=== PATIENT | female | born 1970 | race Caucasian/White ===

== ENCOUNTER 2025-02-18 16:11 | Inpatient (IN) | payer OTHER, SELFPAY ==
[2025-02-18 09:31] VITALS: BP 145/85
[2025-02-18 10:36] VITALS: BMI 29.8
[2025-02-18 10:52] LABS: % Basophils 0.5 % (0-2); % Eosinophils 0.8 % (0-6); % Immature Granulocytes 0.4 % (0-0.5); % Lymphocytes 11.7 % (20.5-51.1); % Monocytes 6.1 % (1.7-9.3); % Neutrophils 80.5 % (42.2-75.2); Absolute Eosinophils 0.1 10^3/uL (0-0.7); Absolute Lymphocytes 0.9 10^3/uL (1.2-3.4); Absolute Monocytes 0.5 10^3/uL (0.1-0.6); Absolute Neutrophils 6.1 10^3/uL (1.4-6.5); Hematocrit 41.3 % (37.0-47.0); Hemoglobin 14.6 g/dL (12.0-16.0); Mean Corp Hgb Conc. 35.4 g/dL (33.0-37.0); Mean Corpuscular Volume 87.7 fL (81.0-99.0); Mean Platelet Volume 10.1 fL (7.4-10.4); Nucleated Red Blood Cells % 0 %; Platelet Count 269 10^3/uL (130-400); Red Blood Cell Count 4.71 10^6/uL (4.20-5.40); Red Cell Dist. Width 13.5 % (11.5-14.5); White Blood Cell Count 7.6 10^3/uL (4.8-10.8)
[2025-02-18 11:02] LABS: ALT (SGPT) 13 U/L (0-35); AST (SGOT) 16 U/L (14-36); Albumin 4.8 g/dl (3.5-5.0); Alkaline Phosphatase 43 U/L (38-126); Blood Urea Nitrogen 17 mg/dl (7-17); Calcium 9.9 mg/dl (8.4-10.2); Carbon Dioxide 26 mmol/L (22-30); Chloride 109 mmol/L (98-107); Estimated Creatinine Clearance 78 ml/min; Glucose 90 mg/dl (70-99); Lipase 140 U/L (23-300); Potassium 4.3 mmol/L (3.5-5.1); Sodium 142 mmol/L (135-145); Total Bilirubin 1.1 mg/dl (0.2-1.3); Total Protein 7.7 g/dl (6.3-8.2); eGFR > 60.00
[2025-02-18 11:05] LABS: Urine Albumin Negative (Neg - Trace); Urine Bilirubin Negative (Negative); Urine Character Clear (Clear); Urine Color Yellow; Urine Glucose Negative (Negative); Urine Ketone 1+ (Negative); Urine Leukocyte Negative (Negative); Urine Nitrite Negative (Negative); Urine Occult Blood Negative (Negative); Urine Specific Gravity 1.015 (<1.030); Urine Urobilinogen Negative (Neg - 1+)
[2025-02-18] MEDS: TORADOL 15 MG IV ×2 (11:06→18:13)
--- NOTE | 2025-02-18 11:22 | ED.GENMED ---
History of Present Illness
General
Chief Complaint: Abdominal Pain
Time Seen by Provider: 02/18/25 09:57
History of Present Illness
History of Present Illness:
54-year-old female with history of thyroid disease presenting for abdominal pain. Patient reports prior to arrival she was at the gym and started to have central abdominal pain and cramping. She had to lay on the floor for about 30 minutes due to
her symptoms. Denies ever having this in the past. Reports history of appendectomy and total hysterectomy. Pain has been constant since onset, however cramping has slightly improved. Denies any vomiting or changes in her stool. Denies fever.
Denies chest pain or difficulty breathing. Denies any urinary complaints. Denies additional acute medical complaints
Past History
Past History
ED Past Medical History: Other (BRCA 1 Gene )
ED Past Surgical History: Gynecological and Other (Prophylactic mastectomy )
Social History
Tobacco: Non-smoker
Alcohol: None
Drug: None
Personal:
Living: with family
Employment: Employed
Family History
Family History: Other (breast ca )
Phy Exam
Physical Exam
Physical Exam:
General: Well-appearing, no clinical signs of dehydration, nontoxic and in no acute distress
HEENT: protecting airway
Neck: appears supple
CV: Normal heart rate, regular rhythm
Resp: No accessory muscle use, no increased work of breathing
Abd: Soft and non-distended, generalized tenderness to mid abdomen including periumbilical region and suprapubic region. No rebound or guarding
Extremities: No deformities, no swelling
Neuro: alert, no focal neurologic deficit
: deferred
Rectal: deferred
Psych: Normal affect
Skin: Intact
Course
Orders/Labs/Results
Orders:
Orders
02/18/25 10:16
CT Abd/pelvis W Iv Cont Urgent
Comment:
Reason For Exam: generalized pain midline
02/18/25 10:43
Complete Blood Count/With Diff Urgent
Comprehensive Metabolic Panel Urgent
Lipase Urgent
Urinalysis Reflex To Culture Urgent
Date Specimen was Collected: 02/18/25
Time Specimen was Collected: 10:42
02/18/25 10:45
Ketorolac [Toradol] 15 mg IV NOW STA
02/18/25 14:33
Gastrographin Enema [RF Colon-Single Contrast] Urgent
Comment:
Reason For Exam: sigmoid impaction
02/18/25 14:34
Lorazepam [Ativan] 1 mg IV NOW STA
Abnormal Lab Results
02/18/25
10:43
Absolute Lymphs (auto) 0.9 L 10^3/uL
(1.2-3.4)
Neutrophils % 80.5 H %
(42.2-75.2)
Lymphocytes % 11.7 L %
(20.5-51.1)
Chloride 109 H mmol/L
(98-107)
Urine Ketones 1+ A
(Negative)
02/18/25 10:43
02/18/25 10:43
Vital Signs
Initial and Last Documented VS:
Initial Vital Signs
Temp Pulse Resp BP Pulse Ox
97.5 F 74 18 145/85 100
02/18/25 09:31 02/18/25 09:31 02/18/25 09:31 02/18/25 09:31 02/18/25 09:31
Last Documented Vital Signs
Temp Pulse Resp BP Pulse Ox
97.5 F 72 16 150/72 98
02/18/25 09:31 02/18/25 14:23 02/18/25 14:23 02/18/25 14:23 02/18/25 14:23
MDM/Problems Addressed
MDM/Problems Addressed:
54-year-old female presenting to the emergency department for acute onset of abdominal pain. Vital signs on arrival are normal.
On exam patient is resting comfortably, no acute distress or discomfort. She is afebrile, nontoxic. Generalized tenderness to the mid abdomen. No additional associated GI symptoms. History of appendectomy, so without suspicion for acute
appendicitis. Plan for laboratory analysis, CT abdominal imaging. Toradol administered for pain.
12:50 - CT shows evidence of stool ball in the sigmoid colon, consistent with impaction/stercoral colitis, surrounding inflammatory changes. Given location, will consult with colorectal surgery. Patient's pain is currently controlled. Labs
unremarkable.
14:10 - Colorectal surgery to bedside, recommending a contrast enema study to try and clear out the obstruction due to risk of perforation. Advised admission. Patient in agreement with plan
*Critical Care Note
Total Time (30-74mins, 75-104mins- exclusive of procedures): Not Applicable
ED Attending Note
-
Portions of this chart may have been created with voice recognition software.� Occasional wrong word or��sound alike� substitutions may have occurred due to the inherent limitations of voice recognition software.
Discharge Plan
Departure
Prescriptions:
No Action
clindamycin HCl 150 MG capsule
300 mg PO TID Qty: 60 0RF
hydrocodone-acetaminophen 5 MG/500 MG tablet
1 tab PO Q6HPRN PRN (Reason: PAIN) Qty: 20 0RF
ibuprofen 600 MG tablet
600 mg PO Q6H Qty: 30 0RF
cephalexin 500 MG capsule
500 mg PO BID Qty: 20 0RF
prednisone 10 MG tablet
10 mg PO .TAPER Qty: 30 0RF
Rx Instructions:
Take 40mg daily x3days, 30mg daily x3days,
20mg daily x3days, 10mg daily x3days.
hydrocodone-acetaminophen 1 TABLET tablet
1 tab PO Q4HPRN PRN (Reason: pain) Qty: 10 0RF
diazepam 5 MG tablet
5 mg PO TIDPRN PRN (Reason: spasm) Qty: 9 0RF
Referrals:
Nelson Hayden MD [Family Provider, Family Practice]
Interventions
Interventions:
*Risk Screen - Suicide Last Done: 02/18/25 09:31
*General Assessment Last Done: 02/18/25 09:31
*Neglect/Abuse Screening Last Done: 02/18/25 10:39
*ED- Fall Risk Assessment Last Done: 02/18/25 10:50
*ED COVID-19 Vaccine History Last Done: 02/18/25 10:39
DX-Nakfds-Myovbdjbfy Assessment Last Done: 02/18/25 10:40
Discharge Date and Time
Print Language: FIJIAN
[2025-02-18 14:23] VITALS: BP 150/72
--- NOTE | 2025-02-18 14:59 | HPS.HSE ---
Family Physician
-
Family Physician: Nelson Hayden
Chief Complaint
-
Abdominal Pain
History of Present Illness
Patient is a 54 y/o female past medical history of hypothyroidism who presents with abdominal pain. Patient describes central abdominal pain and cramping that started this morning while at the gym. She reports slight nausea which she attributes to
Zepbound. She has a tednacny towards constipation which she states is chronic. She denies fevers, sweats or chills.
Medical History
Past Medical History
Past Medical History: Reports Other
Additional Past Medical History:
Hypothyroidism
Past Surgical History: Reports Other
Additional Past Surgical History:
Bilateral Mastectomy with Reconstruction
Hysterectomy
Appendectomy
Social History
Tobacco: Non-smoker
Alcohol: None
Personal:
Living: With Family
Family History
Family History: Not pertinent
Allergies / Home Medications
Allergies reflects when Allergies were last updated in [facility].
Home Medications with original date entered in [facility]
Allergy/Medication List:
Allergies
Allergy/AdvReac Type Severity Reaction Status Date / Time
Sulfa (Sulfonamide Allergy Rash Verified 02/18/25 09:31
Antibiotics)
Home Medications
diazepam 5 mg tablet (Valium) 5 mg PO DAILYPRN PRN anxiety 02/18/25
levothyroxine 50 mcg tablet (Synthroid) 50 mcg PO DAILY 02/18/25
ondansetron HCl 4 mg tablet 4 mg PO Q8HPRN PRN nausea 02/18/25
simethicone 80 mg chewable tablet 160 mg PO DAILYPRN PRN gas pains 02/18/25
tirzepatide (weight loss) 7.5 mg/0.5 mL subcutaneous pen injector (Zepbound) 7.5 mg SC TH 02/18/25
Review of Systems
-
History Source: Patient
A 12 point ROS was completed and negative except as noted: Yes
Constitutional: Denies Fever or Chills
Respiratory: Denies Cough or Trouble Breathing
Cardiac: Denies Chest Pain or Palpitations
Abdomen/GI: Reports See HPI, Abdominal Pain, Nausea and Constipated; Denies Vomiting or Diarrhea
Physical Exam
Vital Signs
Vital Signs
Temp Pulse Resp BP Pulse Ox
97.5 F 72 16 150/72 98
02/18/25 09:31 02/18/25 14:23 02/18/25 14:23 02/18/25 14:23 02/18/25 14:23
Physical Exam
General: Well Developed, Well Nourished and No Apparent Distress
HEENT: NormoCephalic, Anicteric, Moist mucous membranes and Atraumatic
Respiratory: Clear and Non Labored Respirations; No Wheezes, Rales or Rhonchi
Cardiac: S1/S2 and Regular Rhythm; No Murmur
GI: Soft, Non Distended, Tender (Mild in LLQ / Suprapubic region without rebound or guarding) and Other (Slightly hyperactive bowel sounds)
Rectal: Deferred by Provider
Musculoskeletal: No Clubbing, No Cyanosis and No Edema
Skin: Warm and Dry; No Rash
Neuro: Awake, Alert, Oriented and Nonfocal/grossly intact
Psych: Calm
Laboratory Results
-
02/18/25 10:43
02/18/25 10:43
Laboratory Results
Total Bilirubin 1.1 mg/dl (0.2-1.3) 02/18/25 10:43
AST 16 U/L (14-36) 02/18/25 10:43
ALT 13 U/L (0-35) 02/18/25 10:43
Alkaline Phosphatase 43 U/L (38-126) 02/18/25 10:43
Lipase 140 U/L (23-300) 02/18/25 10:43
Impression/Plan
-
Acute Abdominal Pain secondary to Fecal Impaction / Stercoral Colitis with possible perforation
-Appreciate Colorectal Surgery Consult
-Await Gastrografin enema result
-Continue NPO/IVFs
-Continue Unasyn
Hypothyroidism
-Continue levothyroxine
DVT proph: Lovenox
Code Status: Full Code
--- NOTE | 2025-02-18 15:00 | CON.CRS ---
Consultation
-
Date/Time Consultation Requested: 02/18/2025
Date/Time Consultation Performed: 02/18/2025
Reason for Consultation: Stercoral colitis
Medical History
-
Chief Complaint: Abdominal pain.
History of Present Illness:
54-year-old female who has been on Zepbound for a few months and does deal with a tendency towards constipation, who noticed significant central abdominal pain while at the gym today. This led her to the ER. In the ER her vitals are stable and she
is afebrile. CT scan of the abdomen and pelvis was performed. I reviewed the images and reports with both Dr. Kim and Dr. Conway of radiology. There is a sizable somewhat calcified 'stool ball 'in the sigmoid area with inflammation of the
associated sigmoid and collapsed distal rectosigmoid most consistent with stercoral colitis. Also of concern there is a sliver of air in the same area which may be intraluminal versus intramural versus extraluminal. I was consulted for a
colorectal opinion regarding her situation.
On discussion, the patient admits to chronic intermittent constipation. Again she has been on Zepbound for a few months. She has been passing flatus. She has been somewhat constipated in terms of BMs recently. Denies any blood in her stools.
Admits the pain is somewhat better with the Dilaudid shot she received. Has some nausea intermittently which she blames on the Zepbound. Denies vomiting. She admits to undergoing routine colonoscopies intermittently by a GI group [place].
Her last was only a couple years ago. Denies polyps. Also, she is a carrier for the BRCA1 gene.
Past Medical History
Past Medical History: Other (BRCA1 gene carrier)
Past Surgical History: Other (Prophylactic mastectomy.)
Social History
Tobacco: Non-Smoker
Alcohol: None
Personal:
Employment: Employed (Works in healthcare)
Family History
Family History: Other (Breast cancer)
Allergies / Home Medications
Allergy/AdvReac Type Severity Reaction Status Date / Time
Sulfa (Sulfonamide Allergy Rash Verified 02/18/25 09:31
Antibiotics)
Review of Systems
-
A 10 point review of systems was completed, and was negative except as per HPI.
Physical Exam
Vital Signs
Temp 97.5 F 02/18/25 09:31
Pulse 72 02/18/25 14:23
Resp Rate 16 02/18/25 14:23
Blood pressure 150/72 02/18/25 14:23
SaO2 98 02/18/25 14:23
02/17/25 02/18/25 02/19/25
06:59 06:59 06:59
Actual Weight 76.2 kg
Body Mass Index (BMI) 29.8
Lab Results / Allergies
02/18/25 10:43
02/18/25 10:43
WBC 7.6 10^3/uL (4.8-10.8) 02/18/25 10:43
Hgb 14.6 g/dL (12.0-16.0) 02/18/25 10:43
Hct 41.3 % (37.0-47.0) 02/18/25 10:43
Plt Count 269 10^3/uL (130-400) 02/18/25 10:43
Abs Immat Gran (auto) 0.0 10^3/uL (0-0.05) 02/18/25 10:43
Neutrophils % 80.5 % (42.2-75.2) H 02/18/25 10:43
Allergy/AdvReac Type Severity Reaction Status Date / Time
Sulfa (Sulfonamide Allergy Rash Verified 02/18/25 09:31
Antibiotics)
Physical Exam
General: Well Developed
HEENT: Normocephalic
Respiratory: Clear
Cardiac: S1/S2
GI: Non Distended and Tender (Mild left lower quadrant)
Skin: Warm and Dry
Neuro: AO x 3
Psych: Calm
Data Reviewed
-
CT Scan: Image Personally Visualized and interpreted, Report Reviewed by me, Discussed with Physician, Discussed with Patient and Discussed with Family
Labs: Labs Reviewed by me, Discussed with Physician, Discussed with Patient and Discussed with Family
Assessment / Plan
-
54-year-old female with chronic constipation and recent use of Zepbound with abdominal discomfort/pain and evidence on imaging for stercoral colitis due to a calcified stool ball in her sigmoid. There is also a sliver of air in the area of unclear
location: Intraluminal versus extraluminal versus intramural. This may be evidence for early perforation. I discussed situation in detail with the patient and her . I recommended Gastrografin enema for potentially both diagnostic and
therapeutic potential. The patient understands the risks with this procedure up to including perforation. I did tell her that she perforated from the Gastrografin enema or did not improve, she may need surgery with potential for a stoma. I will
ask the wound nurse to marker for potential stoma just in case. All plans were answered.
--- NOTE | 2025-02-18 15:20 | WOUNDNOTE ---
[facility] RN note: Dr. Luque requested L side stoma marking. Patient seen in radiology and was able to stoma sourav patient in lying and sitting positions. Stoma marked LUQ and LLQ over the rectus muscle avoiding skin creases. LUQ stoma sourav 4.4cm to L of
midline and 6cm above the umbilical line. LLQ stoma sourav 2.8cm to L of midline and 5.2cm distal to umbilical line. Patient instructed surgeon makes the final decision with stoma placement. Pelzer texted Dr. Luque re: stoma marked LLQ and LUQ, both
upper and lower quadrants have pouch leakage potential d/t body habitus, upper may be better unless surgeon thinks it's too close to rib cage, cannot go lower in LUQ d/t deep skin crease.
--- NOTE | 2025-02-18 15:45 | W.PN.UPDATE ---
Update Note
Progress Note Update
This is an addendum to H&P written by Julia Jeffers on 02/18/2025.� Patient seen and examined independently with PA.
54-year-old female past medical history of chronic intermittent constipation, hypothyroidism�presenting with central lower abdominal pain.
Labs unremarkable.
CT abdomen pelvis shows focal stool ball within the sigmoid colon with adjacent inflammatory change likely focal fecal impaction/stercoral colitis.� Small curvilinear focus of air posterior medial to the stool ball likely intraluminal which may
represent focus of pneumatosis intestinalis or localized extraluminal air.� Bowel wall thickening inflammatory change adjacent to the rectum and distal sigmoid colon consistent with colitis.
Colorectal recommended Gastrografin enema. NPO, IV fluids,�unasyn. Will need to start bowel regimen as recommended by colorectal.�
--- NOTE | 2025-02-18 16:33 | W.PN.UPDATE ---
Update Note
Progress Note Update
Gastrografin enema results noted. I did discuss and reviewed the images with Dr. Rafal Medeiros of radiology. There is no extravasation of contrast to indicate leak. However there is an obstructing filling defect in the proximal sigmoid consistent
with a stool ball. I discussed the situation with the patient and offered her 2 options. One option would be preemptive sigmoidectomy with likely colostomy. The other is oral laxatives overnight to see if this moves the stool ball and clears her
system out. She understands that the laxatives may exacerbate his situation and lead to colon perforation. On the other hand it may clear her out and allow her to avoid surgery. She she opts for the laxatives overnight. She will be on clears. I
will also tentatively add her to the OR schedule for tomorrow just in case.
[2025-02-18 17:02] LABS: TSH Reflex To Free T4 0.77 uIU/ml (0.47-4.68)
[2025-02-18 17:05] VITALS: BP 156/81
--- NOTE | 2025-02-18 17:09 | PTCARENOTE ---
Pt arrived to 2S via stretcher, ambulated to bed independently, gait steady. CLD and NPO past midnight reviewed with pt, pt verbalized understanding. Pt denies pain/ nausea at this time. Stoma markings noted, plan of care reviewed with pt and
spouse. Awaiting bowel prep from pharmacy to initiate. Bed locked and in the lowest position, safety maintained. Call scruggs in reach, spouse at bedside.
[2025-02-18 17:16] VITALS: BMI 29.5
--- NOTE | 2025-02-18 17:57 | PTCARENOTE ---
RN communicated with physicians group, pt does not require telemetry at this time. Care remains ongoing.
[2025-02-18] MEDS: LOVENOX 40 MG SC (18:03)
[2025-02-18] MEDS: NULYTELY SOLUTION 4 LITERS PO (18:04)
[2025-02-18] MEDS: UNASYN IV ×2 (18:42→23:14)
[2025-02-18 19:00] VITALS: BP 135/86
[2025-02-18] MEDS: DILAUDID 0.25 MG IV (21:14)
[2025-02-18] MEDS: ZOFRAN 4 MG IV (21:17)
[2025-02-18 23:00] VITALS: BP 147/78
--- NOTE | 2025-02-18 23:15 | PTCARENOTE ---
Addendum entered by Parvez Cerna RN 02/19/25 05:17:
Patient admits to passing gas. Pain 5-6 at rest but goes to 8-9 intermittently.
Original Note:
Patient s/p bowel prep for fecal impaction / stercoral colitis with increasing abdominal cramping / pain and nausea. Patient not due for PRN medication at this time, [facility] notified and x1 dose of 0.5mg IV dilaudid ordered and 5mg IV compazine - see
MAR for administration. At pain reassessment, patient unable to verbalize pain scale but states pain is 'tolerable' and 'not like before'. No BM or gas. Resting in bed at this time. VSS, call scruggs within reach, care ongoing.
[2025-02-18] MEDS: DILAUDID 0.5 MG IV (23:23)
[2025-02-18] MEDS: COMPAZINE 5 MG IV (23:24)
[2025-02-19] VITALS (14 sets, daily range): BP systolic 0–138; BP diastolic 52–71
[2025-02-19] MEDS: ZOFRAN 4 MG IV ×2 (05:09→16:42)
[2025-02-19] MEDS: DILAUDID 0.25 MG IV ×2 (05:09→10:00)
[2025-02-19] MEDS: UNASYN IV ×4 (05:10→23:43)
[2025-02-19] MEDS: SYNTHROID PO (06:27)
[2025-02-19 07:30] LABS: Hematocrit 38.8 % (37.0-47.0); Hemoglobin 14.1 g/dL (12.0-16.0); Mean Corp Hgb Conc. 36.3 g/dL (33.0-37.0); Mean Corpuscular Hgb 31.5 pg (27.0-31.0); Mean Corpuscular Volume 86.6 fL (81.0-99.0); Mean Platelet Volume 9.9 fL (7.4-10.4); Platelet Count 238 10^3/uL (130-400); Red Blood Cell Count 4.48 10^6/uL (4.20-5.40); Red Cell Dist. Width 13.5 % (11.5-14.5); White Blood Cell Count 15.4 10^3/uL (4.8-10.8)
[2025-02-19] MEDS: TORADOL 15 MG IV ×3 (07:44→23:42)
--- NOTE | 2025-02-19 07:51 | WOUNDNOTE ---
[facility] RN note: Notified Carlie Granados, colorectal PA that patient was stoma marked on L side yesterday afternoon per Dr. Luque's request. Asked if R side was needed too. Carlie responded she did not realize this and the R side was not necessary.
--- NOTE | 2025-02-19 07:54 | W.PN.HOSP.TC ---
Today's Communication/Plan
-
- surgery today
- unasyn
- ivf
Assessment / Plan
Assessment / Plan
Assessment:
54yo F pmh hypothyroidism, anxiety presented to [facility] ED 02/18 for abdominal pain. Pt on zepbound, has a hx of constipation. CT abdo/pelvis positive for sizable somewhat calcified 'stool ball' in sigmoid colon c/w stercoral colitis. Dr. Luque d/w pt
options of preemptive sigmoidectomy w colostomy and laxatives, which may exacerbate the situation and perforate the colon. Pt opted for laxatives
Plan:
Stercoral colitis
- abd/pelvis CT: Focal stool ball within the sigmoid colon, with adjacent inflammatory change
- barium enema: Large obstructing filling defect, distal portion of which is outlined by contrast seen in the sigmoid colon, without passage of water-soluble contrast seen into the more proximal colon and without findings to confirm
extravasation/leak of contrast, including on delayed imaging. Correlation with CT earlier in the same day, 'filling defect' most likely represents a large ball of stool.
- NPO
- IVF
- unasyn
- colorectal surgery input appreciated
Hypothyroidism
- cont levothyroxine
Anxiety
- cont diazepam
Overweight due to excess calories
- hold zepbound
Diet: NPO
DVT ppx: lovenox
Code status: FULL CODE
Anticipated Discharge: > 48 hours
Subjective/Interval History
-
Date of Service: February 19, 2025
Pt is a 54yo F pmh hypothyroidism, anxiety presented to [facility] ED 02/18 for abdominal pain. Pt on zepbound, has a hx of constipation. CT abdo/pelvis positive for sizable somewhat calcified 'stool ball' in sigmoid colon c/w stercoral colitis. Dr. Luque
d/w pt options of preemptive sigmoidectomy w colostomy and laxatives, which may exacerbate the situation and perforate the colon. Pt opted for laxatives and is added to OR schedule for today.
Objective Data
-
Labs:
Laboratory Results
02/19/25 02/19/25
07:19 07:42
WBC 15.4 H
Hgb 14.1
Hct 38.8
Plt Count 238
PT Pending
INR Pending
APTT Pending
Sodium Pending
Potassium Pending
Chloride Pending
Carbon Dioxide Pending
BUN Pending
Creatinine Pending
Glucose Pending
Calcium Pending
Vital Signs:
Vital Signs
Temp Pulse Resp BP Pulse Ox
98.1 F 81 18 147/78 97
02/18/25 23:00 02/18/25 23:00 02/18/25 23:00 02/18/25 23:00 02/19/25 00:35
I&O
02/18/25 02/19/25 02/20/25
06:59 06:59 06:59
Intake Total 1080 / 1080
Balance 1080 / 1080
Review of Systems
-
History Source: Patient
Constitutional: Reports No Symptoms
Respiratory: Reports No Symptoms
Cardiac: Reports No Symptoms
Abdomen/GI: Reports Abdominal Pain and Constipated
Genitourinary: Reports No Symptoms
Musculoskeletal: Reports No Symptoms
Neuro: Reports No Symptoms
Physical Exam
-
General: Well Developed and Well Nourished
HEENT: Normocephalic and Atraumatic
Respiratory: Clear to Auscultation and Non Labored Respirations
Cardiac: Regular Rhythm and S1/S2
GI: Soft, Tender (RLQ), Distended and Other (hypoactive BS)
Musculoskeletal: No Clubbing, No Cyanosis and No Edema
Skin: Warm and Dry
Neuro: Awake, Alert and Oriented
Psych: Calm
[2025-02-19 08:17] LABS: Blood Urea Nitrogen 14 mg/dl (7-17); Calcium 9.3 mg/dl (8.4-10.2); Carbon Dioxide 21 mmol/L (22-30); Chloride 111 mmol/L (98-107); Estimated Creatinine Clearance 77 ml/min; Glucose 110 mg/dl (70-99); Potassium 4.1 mmol/L (3.5-5.1); Sodium 139 mmol/L (135-145); eGFR > 60.00
--- NOTE | 2025-02-19 08:30 | W.PN.CRS1 ---
Today's Communication / Plan
-
OR today
Assessment/Plan
-
Assessment: 54-year-old female with chronic constipation and recent use of Zepbound with abdominal discomfort/pain and evidence on imaging for stercoral colitis due to a calcified stool ball in her sigmoid
Plan:
-OR today for a colectomy with a colostomy creation
-NPO
-IVFS @100ml/hr
-Pre-op labs ordered
-Wound marking for colostomy
-Anticipate OR around 13:30 today
-Continue antibiotics
Subjective Data
Subjective Data
Date of Service: February 19, 2025
Patient states she had a very rough night. She has some flatus but no bowel movements. She is requesting surgery.
Objective Data
-
Vital Signs
Temp Pulse Resp BP Pulse Ox
99.7 F 94 16 124/70 98
02/19/25 07:06 02/19/25 07:06 02/19/25 07:06 02/19/25 07:06 02/19/25 07:06
Intake & Output
02/18/25 02/19/25 02/20/25
06:59 06:59 06:59
Intake Total 1080 / 1080
Balance 1080 / 1080
Intake:
Oral fluids 720 / 720
IV piggybacks 360 / 360
Other:
Number of approximated MODERATE 1
amounts of urine
Lab Results
02/19/25 07:19
02/19/25 07:19
Physical Exam
-
General: No Acute Distress and AOx3
Abdomen: Soft, Non Distended and Tender (LLQ)
Skin: Warm and Dry
[2025-02-19 08:38] LABS: INR 1.02; PT 13.7 Sec (11.4-14.6)
[2025-02-19 08:39] LABS: APTT 34.9 Sec (23.4-35.0)
[2025-02-19] MEDS: NORMOSOL-R/PLASMALYTE-A 1000 IV ×2 (10:00→18:38)
--- NOTE | 2025-02-19 10:40 | WOUNDNOTE ---
WO RN NOTE: Met with patient briefly to check stoma siting. Patient unable to move much due to pain and abdominal distension. Left sided stoma markings are clear and intact. Patient and spouse denied specific questions about ostomies at this time.
Surgery planned for this afternoon. Will follow up with patient after surgery if ostomy is created.
[2025-02-19] MEDS: DILAUDID 0.5 MG IV (12:40)
--- NOTE | 2025-02-19 13:48 | W.PN.UPDATE ---
Update Note
Progress Note Update
No bowel function due to LBO from stercoral colitis/stool ball. Recommended Gauri's resection. Risks and benefits covered. Risks covered include but not limited to bleeding, infection, ureteral injury, rectal stump leak, anastomotic issue (if
created), bowel or solid organ injury, hernia, and anesthetic risks. She agrees to proceed.
--- NOTE | 2025-02-19 15:46 | CM ---
Patient seen at bedside with physicians. Patient and mother, daughter's present. Patient stated that she lives in a 2 story home with no DME at this time. Patient PCP is Dr. Hayden and she uses the [facility] in [place] and patient is pending
surgery today. CM will continue to follow for discharge planning needs.
Plan; surgery pending outcomes/work up for discharge needs.
--- NOTE | 2025-02-19 16:06 | W.IMMPOSTOP ---
Addendum entered and electronically signed by Shahram Luque MD 02/19/25 17:39:
Left VM on patient's 's phone updating him after the case.
Original Note:
Surgical Immed Post Op Note
-
Primary Surgeon: Mansi Luque MD
Assisting Surgeon: RAGHAV Olson
Pre-op Diagnosis: stercoral colitis of sigmoid with fecal impaction
Post-op Diagnosis: same
Procedure Performed: sigmoidectomy
Anesthesia Type: general plus local
Specimen / Cultures: 1) pelvic fluid 2) proximal sigmoid
Estimated Blood Loss: 50 cc
Complications: no immediate
Operative Findings: 1) mild distension of colon and small bowel 2) firm stool ball in proximal sigmoid with associated short segment of inflamed sigmoid with localized exudate 3) no obvious gross perforation 2) small volume skinner pelvic fluid
#19 Jesús in pelvis.
NGT in stomach--confirmed.
Rebolledo in bladder.
Will send back to med surg.
Will continue antibiotics.
[2025-02-19] MEDS: REGLAN 5 MG IV (18:34)
[2025-02-19] MEDS: OFIRMEV 100 IV (20:22)
[2025-02-20] MEDS: OFIRMEV 100 IV ×3 (02:15→14:28)
[2025-02-20 03:00] VITALS: BP 110/64
[2025-02-20] MEDS: NORMOSOL-R/PLASMALYTE-A 1000 IV ×2 (04:01→14:26)
[2025-02-20] MEDS: DILAUDID 0.25 MG IV (04:10)
[2025-02-20] MEDS: UNASYN IV ×4 (05:35→23:36)
[2025-02-20] MEDS: SYNTHROID PO (05:36)
[2025-02-20] MEDS: TORADOL 15 MG IV ×4 (05:36→23:37)
[2025-02-20 06:16] VITALS: BMI 30.7
[2025-02-20 07:00] VITALS: BP 120/66
[2025-02-20] MEDS: PROTONIX IV 40 MG IV (07:40)
[2025-02-20] MEDS: NSS (PRESERVATIVE FREE) 10 ML IV (07:40)
[2025-02-20 08:16] LABS: % Basophils 0.1 % (0-2); % Immature Granulocytes 0.4 % (0-0.5); % Lymphocytes 5.6 % (20.5-51.1); % Monocytes 4.7 % (1.7-9.3); % Neutrophils 89.2 % (42.2-75.2); Absolute Immature Granulocytes 0.1 10^3/uL (0-0.05); Absolute Lymphocytes 0.8 10^3/uL (1.2-3.4); Absolute Monocytes 0.7 10^3/uL (0.1-0.6); Absolute Neutrophils 12.5 10^3/uL (1.4-6.5); Hematocrit 35.8 % (37.0-47.0); Hemoglobin 12.8 g/dL (12.0-16.0); Mean Corp Hgb Conc. 35.8 g/dL (33.0-37.0); Mean Corpuscular Hgb 30.8 pg (27.0-31.0); Mean Corpuscular Volume 86.3 fL (81.0-99.0); Mean Platelet Volume 10.2 fL (7.4-10.4); Nucleated Red Blood Cells % 0 %; Platelet Count 234 10^3/uL (130-400); Red Blood Cell Count 4.15 10^6/uL (4.20-5.40); Red Cell Dist. Width 13.2 % (11.5-14.5)
--- NOTE | 2025-02-20 08:49 | W.PN.CRS1 ---
Today's Communication / Plan
-
Passing flatus, will perform an NG tube clamp trial today.
DC [place]
Pain control
DVT prophylaxis
Out of bed/ambulate
Assessment/Plan
-
This is a 54-year-old female with chronic constipation who presented with stercoral colitis that failed medical management. POD #1 open sigmoidectomy. Doing well, expected postoperative course
Passing flatus, will perform an NG tube clamp trial today.
DC [place]
Pain control
DVT prophylaxis
Out of bed/ambulate
Subjective Data
Procedure
Open sigmoidectomy
Subjective Data
Date of Service: February 20, 2025
Interval Events:
No acute events overnight. Slept well. Pain Controlled. Denies Nausea/Vomiting, +bowel function.
Objective Data
-
Vital Signs
Temp Pulse Resp BP Pulse Ox
97.9 F 68 22 120/66 99
02/20/25 07:00 02/20/25 07:00 02/20/25 07:00 02/20/25 07:00 02/20/25 07:00
Intake & Output
02/19/25 02/20/25 02/21/25
06:59 06:59 06:59
Intake Total 1080 / 1080 1620 / 1620
Output Total 1405 / 1405
Balance 1080 / 1080 215 / 215
Intake:
Oral fluids 720 / 720
IV fluids (Total) 1100 / 1100
Normosol 100 / 100
IV piggybacks 360 / 360 400 / 400
Amount instilled into GI Tube ( 120 / 120
Total)
[place] 120 / 120
Output:
Drain Output (Total) 260 / 260
Right Phu-Giraldo 260 / 260
Gastrointestinal tube output ( 280 / 280
Total)
[place] 280 / 280
Urine, [place] 865 / 865
Other:
Number of approximated MODERATE 1 2
amounts of urine
Lab Results
02/20/25 07:58
Physical Exam
-
General: No Acute Distress
HEENT: Grossly Normal
Abdomen: Soft, Non Distended and Non Tender
Incision: Clear, Dry, Intact
Data Reviewed
-
CT Scan: Image Reviewed
[2025-02-20 09:00] LABS: Blood Urea Nitrogen 12 mg/dl (7-17); Calcium 8.4 mg/dl (8.4-10.2); Carbon Dioxide 23 mmol/L (22-30); Chloride 108 mmol/L (98-107); Estimated Creatinine Clearance 90 ml/min; Glucose 114 mg/dl (70-99); Magnesium 2.2 mg/dl (1.6-2.3); Potassium 4.3 mmol/L (3.5-5.1); Sodium 138 mmol/L (135-145); eGFR > 60.00
[2025-02-20] MEDS: DILAUDID 0.5 MG IV ×2 (09:10→19:00)
[2025-02-20 11:00] VITALS: BP 127/70
--- NOTE | 2025-02-20 11:35 | W.PN.HOSP.TC ---
Today's Communication/Plan
-
see note
Assessment / Plan
Assessment / Plan
1. Sigmoid colon obstruction from fecolith
s/p sigmoidectomy on 02/19
-patient have a history of chronic constipation. Has been started on stepdown from October. Patient has noticed decreased bowel movement and worsening abdominal pain for last few days. CT abdomen pelvis showing suspected fecalith with
calcification in sigmoid colon. A barium enema showed known passage of contrast in proximal colon. Over the night patient was attempted to be relieved with oral/rectal laxative without much benefit. Patient was taken to the OR for sigmoidectomy
-Question of patient having motility issue although nothing to support this. No history of any rheumatological condition/scleroderma. Undertreated hypothyroidism can cause change in bowel habits although TSH not suggestive of this. No
behavioral/psych issues which would worsening constipation. Patient have some night sweats although repeated colonoscopy and less concerning of strictures.
- Postoperative patient is passing flatus, NG tube has been clamped today. Monitor for improvement. NG to be pulled out if no nausea or vomiting.
2. Possible stercoral colitis - no overt sign of sepsis. have elevated wbc/afebrile some tachycardia. Patient being managed on empiric Unasyn for time being
3. Generalized anxiety disorder -on Valium as needed, will provide xanax if needed
4. Hypothyroidism -maintained on levothyroxine. TSH 0.77.
5. Left thigh pain -rule out blood clot, venous Doppler ordered
Anticipated Discharge: 24 - 48 hours
Subjective/Interval History
-
Date of Service: February 20, 2025
Resting comfortably in chair
Complaining some abdominal discomfort
Passing gas
No nausea or vomiting
NG tube has been clamped in the morning today
Objective Data
-
Labs:
Laboratory Results
02/20/25
07:58
WBC 14.0 H
Hgb 12.8
Hct 35.8 L
Plt Count 234
Sodium 138
Potassium 4.3
Chloride 108 H
Carbon Dioxide 23
BUN 12
Creatinine 0.7
Glucose 114 H
Calcium 8.4
Vital Signs:
Vital Signs
Temp Pulse Resp BP Pulse Ox
97.9 F 68 22 120/66 99
02/20/25 07:00 02/20/25 07:00 02/20/25 07:00 02/20/25 07:00 02/20/25 07:00
I&O
02/19/25 02/20/25 02/21/25
06:59 06:59 06:59
Intake Total 1080 / 1080 1620 / 1620
Output Total 1405 / 1405
Balance 1080 / 1080 215 / 215
Review of Systems
-
Respiratory: Reports No Symptoms
Cardiac: Reports No Symptoms
Abdomen/GI: Reports Abdominal Pain; Denies Nausea or Vomiting
Physical Exam
-
General: Obese; Negative Pain
HEENT: Negative Oxygen
GI: Soft and Tender; Negative Normal Bowel Sounds (Decreased bowel sounds) or Distended
Neuro: Awake, Alert, Oriented and No Motor Deficits
[2025-02-20 15:00] VITALS: BP 119/67
[2025-02-20 23:00] VITALS: BP 113/62
[2025-02-21] MEDS: NORMOSOL-R/PLASMALYTE-A 1000 IV (02:59)
[2025-02-21] MEDS: DILAUDID 0.25 MG IV (03:00)
[2025-02-21] MEDS: DILAUDID 0.5 MG IV (03:57)
[2025-02-21 06:00] VITALS: BMI 31.0
[2025-02-21] MEDS: TORADOL 15 MG IV ×3 (06:11→18:04)
[2025-02-21] MEDS: UNASYN IV ×3 (06:12→18:04)
[2025-02-21] MEDS: SYNTHROID 50 MCG PO (06:12)
[2025-02-21 06:54] LABS: Hematocrit 32.8 % (37.0-47.0); Hemoglobin 11.5 g/dL (12.0-16.0); Mean Corp Hgb Conc. 35.1 g/dL (33.0-37.0); Mean Corpuscular Hgb 30.9 pg (27.0-31.0); Mean Corpuscular Volume 88.2 fL (81.0-99.0); Mean Platelet Volume 10.8 fL (7.4-10.4); Platelet Count 215 10^3/uL (130-400); Red Blood Cell Count 3.72 10^6/uL (4.20-5.40); Red Cell Dist. Width 13.6 % (11.5-14.5); White Blood Cell Count 9.3 10^3/uL (4.8-10.8)
[2025-02-21 07:07] VITALS: BP 130/79
[2025-02-21] MEDS: NSS (PRESERVATIVE FREE) 10 ML IV (08:15)
[2025-02-21] MEDS: PROTONIX IV 40 MG IV (08:16)
[2025-02-21 08:39] LABS: Blood Urea Nitrogen 12 mg/dl (7-17); Calcium 8.3 mg/dl (8.4-10.2); Carbon Dioxide 25 mmol/L (22-30); Chloride 110 mmol/L (98-107); Estimated Creatinine Clearance 79 ml/min; Glucose 86 mg/dl (70-99); Potassium 4.1 mmol/L (3.5-5.1); Sodium 141 mmol/L (135-145); eGFR > 60.00
--- NOTE | 2025-02-21 09:21 | W.PN.CRS1 ---
Today's Communication / Plan
-
Full liquids
Assessment/Plan
-
54-year-old female with chronic constipation who presented with stercoral colitis/LBO secondary to stool ball
POD #2 Open sigmoidectomy.
Doing well, expected postoperative course
Mild acute anemia secondary to expected blood losses and hemodilution
Passing flatus/loose stools
NGT out on 02/20, tolerating clears
AFebrile, VSS
Plan:
FLD
d/c IVF
Toradol/Tylenol scheduled and prn Tramadol and Dilaudid
OOB/ambulate
Labs in am
DVT prophylaxis
Out of bed/ambulate
Subjective Data
Procedure
Open sigmoidectomy (02/19/35 Dr. Luque)
Subjective Data
Date of Service: February 21, 2025
Patient seen and examined at bedside with Dr. Newton. Ambulating to bathroom. Passing small loose bm's and flatus. Pain improving. Denies n/v. Tolerating clears. No appetite yet.
Objective Data
-
Vital Signs
Temp Pulse Resp BP Pulse Ox
97.7 F 64 16 130/79 96
02/21/25 07:07 02/21/25 07:07 02/21/25 07:07 02/21/25 07:07 02/21/25 07:07
Intake & Output
02/20/25 02/21/25 02/22/25
06:59 06:59 06:59
Intake Total 1620 / 1620 1680 / 1680
Output Total 1405 / 1405 75 / 75
Balance 215 / 215 1605 / 1605
Intake:
Oral fluids 480 / 480
IV fluids (Total) 1100 / 1100 1000 / 1000
Normosol 100 / 100
IV piggybacks 400 / 400 200 / 200
Amount instilled into GI Tube ( 120 / 120
Total)
[place] 120 / 120
Output:
Drain Output (Total) 260 / 260 75 / 75
Right Phu-Giraldo 260 / 260 75 / 75
Gastrointestinal tube output ( 280 / 280
Total)
[place] 280 / 280
Urine, [place] 865 / 865
Other:
Number of approximated MODERATE 2 1
amounts of urine
Lab Results
02/21/25 05:43
02/21/25 07:57
Physical Exam
-
General: No Acute Distress
HEENT: Grossly Normal
Abdomen: Soft, Non Distended and Tender (minimal to incisions)
Incision: Clear, Dry, Intact (shadowing on silver dressing)
[2025-02-21] MEDS: ULTRAM 50 MG PO ×2 (11:57→18:19)
[2025-02-21] MEDS: TYLENOL 650 MG PO ×3 (11:59→20:35)
--- NOTE | 2025-02-21 14:09 | W.PN.HOSP.TC ---
Today's Communication/Plan
-
Diet per colorectal surgery
Continue empiric antibiotic
follow-up intraoperative culture
Possible discharge in 24 to 48 hours
Assessment / Plan
Assessment / Plan
1. Sigmoid colon obstruction from fecolith
s/p sigmoidectomy on 02/19
-patient have a history of chronic constipation. Has been started on stepdown from October. Patient has noticed decreased bowel movement and worsening abdominal pain for last few days. CT abdomen pelvis showing suspected fecalith with
calcification in sigmoid colon. A barium enema showed known passage of contrast in proximal colon. patient was attempted to be relieved with oral/rectal laxative without much benefit. Patient was taken to the OR for sigmoidectomy
-Question of patient having motility issue although nothing to support this. No history of any rheumatological condition/scleroderma. Undertreated hypothyroidism can cause change in bowel habits although TSH not suggestive of this. No
behavioral/psych issues which would worsen constipation.
- NG tube has been removed at this point. Patient having some diarrhea possibly from colon prep preop. Diet has been advanced to full liquid diet. Further adjustment per surgery
2. Possible stercoral colitis - no overt sign of sepsis. have elevated wbc/afebrile some tachycardia. Patient being managed on empiric Unasyn for time being. Intraoperative culture has been negative. WBC has trended down. Possibly can be
discontinued at discharge.
3. Generalized anxiety disorder -on Valium as needed, will provide xanax if needed
4. Hypothyroidism -maintained on levothyroxine. TSH 0.77.
5. Left thigh pain -ruled out blood clot, venous Doppler negative
Anticipated Discharge: 24 - 48 hours
Subjective/Interval History
-
Date of Service: February 21, 2025
Resting comfortably in bed
Having some abdominal discomfort/tenderness over
Objective Data
-
Labs:
Laboratory Results
02/21/25 02/21/25
05:43 07:57
WBC 9.3
Hgb 11.5 L
Hct 32.8 L
Plt Count 215
Sodium Cancelled 141
Potassium Cancelled 4.1
Chloride Cancelled 110 H
Carbon Dioxide Cancelled 25
BUN Cancelled 12
Creatinine Cancelled 0.8
Glucose Cancelled 86
Calcium Cancelled 8.3 L
Vital Signs:
Vital Signs
Temp Pulse Resp BP Pulse Ox
97.7 F 64 16 130/79 96
02/21/25 07:07 02/21/25 07:07 02/21/25 07:07 02/21/25 07:07 02/21/25 07:07
I&O
02/20/25 02/21/25 02/22/25
06:59 06:59 06:59
Intake Total 1620 / 1620 1680 / 1680
Output Total 1405 / 1405 75 / 75
Balance 215 / 215 1605 / 1605
Review of Systems
-
Respiratory: Reports No Symptoms
Cardiac: Reports No Symptoms
Abdomen/GI: Reports Abdominal Pain and Diarrhea; Denies Nausea or Vomiting
Physical Exam
-
General: Obese; Negative Pain
HEENT: Negative Oxygen
GI: Soft, Normal Bowel Sounds (overactive bowel sounds) and Tender; Negative Distended
Neuro: Awake, Alert, Oriented and No Motor Deficits
[2025-02-21 15:06] VITALS: BP 131/72
[2025-02-21 23:00] VITALS: BP 120/62
[2025-02-22] MEDS: TYLENOL 650 MG PO ×4 (00:20→16:50)
[2025-02-22] MEDS: UNASYN IV ×2 (00:20→05:09)
[2025-02-22] MEDS: TORADOL 15 MG IV ×4 (00:21→17:01)
[2025-02-22] MEDS: TYLENOL PO ×2 (03:53→20:21)
[2025-02-22] MEDS: SYNTHROID 50 MCG PO (05:09)
[2025-02-22 05:16] VITALS: BMI 30.4
[2025-02-22 07:27] LABS: Hematocrit 35.3 % (37.0-47.0); Hemoglobin 12.3 g/dL (12.0-16.0); Mean Corp Hgb Conc. 34.8 g/dL (33.0-37.0); Mean Corpuscular Hgb 31.1 pg (27.0-31.0); Mean Corpuscular Volume 89.4 fL (81.0-99.0); Mean Platelet Volume 10.2 fL (7.4-10.4); Platelet Count 239 10^3/uL (130-400); Red Blood Cell Count 3.95 10^6/uL (4.20-5.40); Red Cell Dist. Width 13.3 % (11.5-14.5); White Blood Cell Count 6.3 10^3/uL (4.8-10.8)
[2025-02-22 07:45] VITALS: BP 149/84
[2025-02-22] MEDS: NSS (PRESERVATIVE FREE) 10 ML IV (07:56)
[2025-02-22] MEDS: PROTONIX IV 40 MG IV (07:56)
[2025-02-22 08:24] LABS: Blood Urea Nitrogen 7 mg/dl (7-17); Calcium 8.7 mg/dl (8.4-10.2); Carbon Dioxide 26 mmol/L (22-30); Chloride 107 mmol/L (98-107); Estimated Creatinine Clearance 90 ml/min; Glucose 86 mg/dl (70-99); Potassium 4.2 mmol/L (3.5-5.1); Sodium 140 mmol/L (135-145); eGFR > 60.00
--- NOTE | 2025-02-22 09:07 | W.PN.CRS1 ---
Today's Communication / Plan
-
low residue
lovenox
d/c abx
Assessment/Plan
-
54-year-old female with chronic constipation who presented with stercoral colitis/LBO secondary to stool ball
POD #3 Open sigmoidectomy.
AFebrile, VSS
Plan:
-Advance to low residue
-d/c IVF
-Toradol/Tylenol scheduled and prn Tramadol and Dilaudid
-DVT prophylaxis- Lovenox added, TEDS/SCDS in place
-OOB of bed/ambulate
-Howard drain to remain until discharge
-Some noah removed in midline incision
-OR pathology pending
-d/c Unasyn
Subjective Data
Procedure
Open sigmoidectomy (02/19/35 Dr. Luque)
Subjective Data
Date of Service: February 22, 2025
Patient states she is feeling better today. She is having bowel movements and loose stools. She tolerated cleras without difficulty.
Objective Data
-
Vital Signs
Temp Pulse Resp BP Pulse Ox
97.9 F 63 18 149/84 100
02/22/25 07:45 02/22/25 07:45 02/22/25 07:45 02/22/25 07:45 02/22/25 07:45
Intake & Output
02/21/25 02/22/25 02/23/25
06:59 06:59 06:59
Intake Total 1919 / 1919
Output Total 105 / 105
Balance 1814 / 1814
Intake:
Oral fluids 480 / 480
IV fluids (Total) 1000 / 1000
IV piggybacks 440 / 440
Output:
Drain Output (Total) 105 / 105
Right Phu-Giraldo 105 / 105
Other:
Number of approximated MODERATE 1
amounts of urine
Number of approximated LARGE 3
amounts of urine
Lab Results
02/22/25 06:58
02/22/25 06:58
Physical Exam
-
General: No Acute Distress and AOx3
Abdomen: Soft, Non Distended, Tender and Other (HOWARD drain serosanguinous )
Skin: Warm and Dry
Incision: Other (noah in place, half removed, mild serous drainage)
--- NOTE | 2025-02-22 11:33 | CM ---
CM following re: discharge planning.
Reviewed pt's chart, met with pt.
Pt is POD #3 Open sigmoidectomy, continue supportive care.
Per CM note, pt lives in a 2SH with family and independent in all areas [employer].
D/C plan: home with anticipated no needs.
CM will follow with discharge plan updates as hospitalization progresses.
--- NOTE | 2025-02-22 12:24 | W.PN.HOSP.TC ---
Today's Communication/Plan
-
diet advanced LRD
Off abx
monitor diet tolerance
home probably in 24h.
Assessment / Plan
Assessment / Plan
1. Sigmoid colon obstruction from fecolith
s/p sigmoidectomy on 02/19
-patient have a history of chronic constipation. Has been started on stepdown from October. Patient has noticed decreased bowel movement and worsening abdominal pain for last few days. CT abdomen pelvis showing suspected fecalith with
calcification in sigmoid colon. A barium enema showed known passage of contrast in proximal colon. patient was attempted to be relieved with oral/rectal laxative without much benefit. Patient was taken to the OR for sigmoidectomy
-Question of patient having motility issue although nothing to support this. No history of any rheumatological condition/scleroderma. Undertreated hypothyroidism can cause change in bowel habits although TSH not suggestive of this. No
behavioral/psych issues which would worsen constipation.
- NG tube has been removed at this point. Patient having some diarrhea possibly from colon prep preop. Diet has been advanced to LRD. Monitor for diet tolerance.
2. Possible stercoral colitis - no overt sign of sepsis. have elevated wbc/afebrile some tachycardia. Patient being managed on empiric Unasyn for time being. Intraoperative culture has been negative. WBC has trended down. abx discontinued.
3. Generalized anxiety disorder -on Valium as needed, will provide xanax if needed
4. Hypothyroidism -maintained on levothyroxine. TSH 0.77.
5. Left thigh pain -ruled out blood clot, venous Doppler negative
d/w with family member at bedside in details
DVT ppx-lovenox
Full code
Anticipated Discharge: Within 24 hours
Subjective/Interval History
-
Date of Service: February 22, 2025
having bm
tolerated fulls
ambulating
Objective Data
-
Labs:
Laboratory Results
02/22/25
06:58
WBC 6.3
Hgb 12.3
Hct 35.3 L
Plt Count 239
Sodium 140
Potassium 4.2
Chloride 107
Carbon Dioxide 26
BUN 7
Creatinine 0.7
Glucose 86
Calcium 8.7
Vital Signs:
Vital Signs
Temp Pulse Resp BP Pulse Ox
97.9 F 63 18 149/84 100
02/22/25 07:45 02/22/25 07:45 02/22/25 07:45 02/22/25 07:45 02/22/25 07:45
I&O
02/21/25 02/22/25 02/23/25
06:59 06:59 06:59
Intake Total 1919 / 1919
Output Total 105 / 105
Balance 1814 / 1814
Physical Exam
-
General: Well Developed, Well Nourished and No Apparent Distress; Negative Pain
HEENT: Normocephalic, Atraumatic and Moist Mucous Membranes; Negative Oxygen
Respiratory: Clear to Auscultation
Cardiac: Regular Rhythm and S1/S2
GI: Soft, Normal Bowel Sounds (overactive bowel sounds), Tender and Other (midline scar covered in dressing. HOWARD drain w/serosanginous drainage noted ); Negative Distended
Neuro: Awake, Alert, Oriented and No Motor Deficits
[2025-02-22 15:55] VITALS: BP 149/94
[2025-02-22] MEDS: LOVENOX 40 MG SC (17:00)
[2025-02-22] MEDS: ULTRAM 50 MG PO (17:56)
[2025-02-22 23:00] VITALS: BP 148/75
[2025-02-23] MEDS: TORADOL IV (01:00)
[2025-02-23] MEDS: TYLENOL PO (01:00)
[2025-02-23] MEDS: TYLENOL 650 MG PO ×3 (03:33→12:38)
[2025-02-23] MEDS: SYNTHROID 50 MCG PO (05:05)
[2025-02-23] MEDS: TORADOL 15 MG IV ×2 (05:05→12:34)
[2025-02-23 06:00] VITALS: BMI 29.7
[2025-02-23 07:06] VITALS: BP 142/93
[2025-02-23] MEDS: PROTONIX IV 40 MG IV (09:48)
[2025-02-23] MEDS: NSS (PRESERVATIVE FREE) 10 ML IV (09:49)
--- NOTE | 2025-02-23 10:31 | W.PN.CRS1 ---
Today's Communication / Plan
-
discharge
Assessment/Plan
-
54-year-old female with chronic constipation who presented with stercoral colitis/LBO secondary to stool ball
POD #4 Open sigmoidectomy.
AFebrile, VSS
Plan:
-Continue low residue
-Toradol/Tylenol scheduled and prn Tramadol and Dilaudid
-DVT prophylaxis- Lovenox added, TEDS/SCDS in place
-OOB of bed/ambulate
-Howard drain removed
-All noah removed in midline incision
-OR pathology pending
-d/c Unasyn
-okay for discharge from our standpoint. All discharge instructions discussed with patient including medications, activity levels, and follow up. All questions addressed.
Subjective Data
Procedure
Open sigmoidectomy (02/19/35 Dr. Luque)
Subjective Data
Date of Service: February 23, 2025
Patient states she feels well. She had a bowel movement two days ago. She denies nausea or vomiting. She is passing flatus. She currently has no complaints.
Objective Data
-
Vital Signs
Temp Pulse Resp BP Pulse Ox
97.8 F 63 16 142/93 98
02/23/25 07:06 02/23/25 07:06 02/23/25 07:06 02/23/25 07:06 02/23/25 07:06
Intake & Output
02/22/25 02/23/25 02/24/25
06:59 06:59 06:59
Intake Total 1919 / 1919 640 / 640
Output Total 105 / 105 40 / 40
Balance 1815 / 1815 600 / 600
Intake:
Oral fluids 480 / 480 640 / 640
IV fluids (Total) 1000 / 1000
IV piggybacks 440 / 440
Output:
Drain Output (Total)
Right Phu-Giraldo
Other:
Number of approximated MODERATE 1 2
amounts of urine
Number of approximated LARGE 3
amounts of urine
Lab Results
02/22/25 06:58
02/22/25 06:58
Physical Exam
-
General: No Acute Distress and AOx3
Abdomen: Soft, Non Distended, Non Tender and Other (HOWARD drain serosanginous)
Incision: Clear, Dry, Intact (noah removed)
--- NOTE | 2025-02-23 11:46 | CM ---
Reviewed the chart notes and spoke with the patient and spouse at the bedside. Patient anticipates being discharged today to home. Spouse will provide transportation. CM continues to be available to patient/family and is monitoring medical plan
for needs at discharge.
Plan: Discharge to home when medically stable. No needs identified at this time.
[2025-02-23 12:39] VITALS: BP 148/84
--- NOTE | 2025-02-23 12:57 | W.PN.HOSP.TC ---
Addendum entered and electronically signed by Jose Mendoza MD 02/24/25 08:53:
LATE ADDENDUM
Pt was dced on 02/23/25
More than 30 minutes spent in discharge including
Final examination of the patient
Summarizing hospital stay
Instructions for continuing care to all relevant caregivers
Preparation of discharge records, prescriptions, and referral forms
Total time spent (in minutes): 52
Original Note:
Today's Communication/Plan
-
trial of IVF bolus
cont w/LRD
off abx
Assessment / Plan
Assessment / Plan
1. Sigmoid colon obstruction from fecolith
s/p sigmoidectomy on 02/19
-patient have a history of chronic constipation. Has been started on stepdown from October. Patient has noticed decreased bowel movement and worsening abdominal pain for last few days. CT abdomen pelvis showing suspected fecalith with
calcification in sigmoid colon. A barium enema showed known passage of contrast in proximal colon. patient was attempted to be relieved with oral/rectal laxative without much benefit. Patient was taken to the OR for sigmoidectomy
-Question of patient having motility issue although nothing to support this. No history of any rheumatological condition/scleroderma. Undertreated hypothyroidism can cause change in bowel habits although TSH not suggestive of this. No
behavioral/psych issues which would worsen constipation.
- NG tube has been removed at this point. Patient having some diarrhea possibly from colon prep preop. Diet has been advanced to LRD. Monitor for diet tolerance.
2. Possible stercoral colitis - no overt sign of sepsis. have elevated wbc/afebrile some tachycardia. Patient being managed on empiric Unasyn for time being. Intraoperative culture has been negative. WBC has trended down. abx discontinued.
3. Generalized anxiety disorder -on Valium as needed, will provide xanax if needed
4. Hypothyroidism -maintained on levothyroxine. TSH 0.77.
5. Left thigh pain -ruled out blood clot, venous Doppler negative
6. Lightheadedness-?due to dehydration/deconditioning-ambulated without difficulty. TOelrating diet. Neuro exam non focal. Trial of IVF. Home if feeling better.
d/w with family member at bedside in details
DVT ppx-lovenox
Full code
Anticipated Discharge: Today
Subjective/Interval History
-
Date of Service: February 23, 2025
tolerating diet
walked the hallway
feeling lightheaded after walking
states of abd soreness but not more than usual.
tolerated LRD
Objective Data
-
Vital Signs:
Vital Signs
Temp Pulse Resp BP Pulse Ox
97.7 F 62 16 148/84 98
02/23/25 12:39 02/23/25 12:39 02/23/25 12:39 02/23/25 12:39 02/23/25 07:06
I&O
02/22/25 02/23/25 02/24/25
06:59 06:59 06:59
Intake Total 1920 / 1920 640 / 640
Output Total 105 / 105 40 / 40
Balance 1815 / 1815 600 / 600
Physical Exam
-
General: Well Developed, Well Nourished and No Apparent Distress; Negative Pain
HEENT: Normocephalic, Atraumatic and Moist Mucous Membranes; Negative Oxygen
Respiratory: Clear to Auscultation
Cardiac: Regular Rhythm and S1/S2
GI: Soft, Normal Bowel Sounds (overactive bowel sounds), Tender and Other (midline scar covered in dressing. HOWARD drain w/serosanginous drainage noted ); Negative Distended
Neuro: Awake, Alert, Oriented and No Motor Deficits
[2025-02-23] MEDS: LR 500 IV (13:02)
[2025-02-23 15:07] VITALS: BP 139/89
--- NOTE | 2025-02-23 15:29 | W.DCSUMMARY ---
Discharge Summary
Discharge Data
Date of Admission: 02/18/25
Date of Discharge: 02/23/25
-
Pending Results: No
Hospital Course
54 female past medical history generalized anxiety disorder, hypothyroidism presenting with complaints of abdominal pain. Patient underwent CT abdomen pelvis Shows focal stool ball within the sigmoid colon with adjacent inflammatory change likely
focal fecal impaction/stercoral colitis.� Small curvilinear focus of air posterior medial to the stool ball likely intraluminal which may represent focus of pneumatosis intestinalis or localized extraluminal air.� Bowel wall thickening inflammatory
change adjacent to the rectum and distal sigmoid colon consistent with colitis. Patient was eval by colorectal surgery. Patient was started on laxatives without any results. Patient underwent to the operating room with operative finding of
stercoral colitis of sigmoid colon with fecal impaction status post sigmoidectomy. Postoperative NG tube was placed which was eventually removed. Patient diet was advanced she was tolerating liquids. Patient diet was advanced to low residue.
Patient was feeling lightheaded and received IV fluid resuscitation. Patient was feeling better. Patient was ambulatory without any difficulty. Patient follow-up with colorectal surgery postop and primary care doctor.
Discharge Plan
-
Patient Disposition: Home (Routine Discharge)
Discharge Diagnosis/Procedures: Sigmoid colon obstruction from fecolith s/p sigmoidectomy on 02/19
Condition: Fair
Diet: Low Residue
Activity: No strenuous activity
Additional Activity: No lifting over 10lbs (gallon of milk)
Wound Care: Allow glue to naturally fall off. Do not pick at incisions.
The HOWARD drain incision will heal in about 5 days. Okay to leave open to air when it seals over. Cover and change daily and as needed.
Instructions: Low-fiber diet
Referrals:
Shahram Luque MD [Active, [facility]] - in two weeks
Nelson Hayden MD [Family Provider, Family Practice]
Additional Discharge Medication Instructions: Tylenol or Ibuprofen as needed for pain. Maximum dose of Tylenol is 4,000mg in 24 hours. Maximum dose of Ibuprofen is 3,200mg in 24 hours. Okay for Colace (stool softener) as needed if constipated.
Prescriptions:
Continued
ondansetron HCl 4 mg Tablet
4 mg PO Q8HPRN PRN (Reason: nausea)
levothyroxine [Synthroid] 50 mcg Tablet
50 mcg PO DAILY
diazepam [Valium] 5 mg Tablet
5 mg PO DAILYPRN PRN (Reason: anxiety)
simethicone 80 mg Tablet,Chewable
160 mg PO DAILYPRN MDD ` PRN (Reason: gas pains)
Zepbound 7.5 mg/0.5 mL Pen Injector
7.5 mg SC TH
Discharge Orders:
Discharge Patient (As Directed); Ordered 02/23/25
Ordered By: Jose Mendoza
Discharge Date and Time
Discharge Date/Time: 02/23/25 17:01
Print Language: [place]
== END 2025-02-23 17:01 | disposition home or self-care (01) | DRG 331 ==
LOC: 2 SOUTH 16:11
PROVIDERS: Hospitalist; Physician Assistant; Physician Assistant Medical; ADMITTING PHYSICIAN Hospitalist; ATTENDING PHYSICIAN Hospitalist; CONSULT PHYSICIAN Surgery; EMERGENCY PHYSICIAN Student in an Organized Health Care Education/Training Program; FAMILY PHYSICIAN Family Medicine
PROC: 0DBN0ZZ Excision of Sigmoid Colon, Open Approach (ICD-10-PCS; 2025-02-19)
DX: K52.89 Other specified noninfective gastroenteritis and colitis (principal); E03.9 Hypothyroidism, unspecified; K56.41 Fecal impaction; F41.1 Generalized anxiety disorder
CPT/HCPCS: 88307; 74177; 74270; 80048; 80053; 81003; 83690; 83735; 84443; 85025; 85027; 85610; 85730; 86850; 86900; 86901; 87070; 87075; 87205; 93971; 96374; 96375; 99285; C1776; Q9967